=== PATIENT | female | born 1960 | race Caucasian/White ===

== ENCOUNTER 2025-02-28 11:47 | Day surgery (SDC) | payer OTHER, SELFPAY ==
[2025-02-21 12:36] VITALS: BMI 38.0
[2025-02-28] VITALS (11 sets, daily range): BP systolic 107–139; BP diastolic 52–89; PULSE 71–108; RESP 14–25; TEMP 36.1–36.7; O2SAT 95–99; BMI 38.9
--- NOTE | 2025-02-28 | DI.RAD.S_ITS ---
PROCEDURE: XR PELVIS 1-2V INDICATIONS: LEFT POSTERIOR HIP TECHNIQUE: 1 view of the lower pelvis acquired. COMPARISON: None. FINDINGS: Bones: Patient is status post left total hip arthroplasty, with hardware components in expected positions. The hip joint appears congruent. The visualized bony structures appear intact. Soft tissues: Overlying postoperative changes are noted. No suspicious soft tissue densities. IMPRESSION: Expected post-operative appearance of a hip arthroplasty. Dictated by: Vasu Ernst M.D. on 02/28/2025 at 18:00 Approved by: Vasu Ernst M.D. on 02/28/2025 at 18:00
--- NOTE | 2025-02-28 06:55 | DI.RAD.S_ITS ---
PROCEDURE: XR HIP W PEL IF DONE LT 2V INDICATIONS: SOFÍA TECHNIQUE: AP pelvis and lateral view of the hip acquired. COMPARISON: [facility], CR, XR PELVIS 1-2V, 02/28/2025, 16:43. [facility], CR, XR PELVIS WITH LATERAL HIP LEFT, 08/01/2024, 15:46. [facility], CR, XR PELVIS WITH LATERAL HIP LEFT, 11/26/2023, 14:19. FINDINGS: Bones: Patient is status post left hip arthroplasty, with hardware components in expected positions. The hip joint appears congruent. The visualized bony structures appear intact. Soft tissues: Overlying postoperative changes are noted. No suspicious soft tissue densities. IMPRESSION: Expected post-operative appearance of a hip arthroplasty. Dictated by: Brooke Kirk M.D. on 02/28/2025 at 18:27 Approved by: Brooke Kirk M.D. on 02/28/2025 at 18:27
[2025-02-28] MEDS: ACETAMINOPHEN 325 MG TABLET 975 MG PO (13:00)
--- NOTE | 2025-02-28 14:31 | P.OP_ITS ---
Operative Date/Time/Diagnoses Date of procedure: 02/28/25 Time of procedure: 15:00 Pre-op diagnosis: Severe left hip osteoarthritis Post-op diagnosis: same Procedure & Clinicians Procedure: Left total hip arthroplasty posterior approach Same procedure(s) as scheduled: Yes Indications: The patient has had progressively worsening left hip pain with radiographic changes consistent with arthritis. Non-operative management has failed and the patient has requested total hip replacement. The risks, benefits and alternatives to surgery were discussed with the patient prior to proceeding. Risks discussed included, but were not limited to, failure to relieve pain, leg length discrepancy, dislocation, stiffness, infection, nerve damage, deep venous thrombosis, pulmonary embolism, stroke, coma, heart attack, permanent paralysis and , as well as the potential need for eventual revision of the prosthetic. Surgeon: Deidra Babb Iron Setter: Rolando Huitron Anesthesia Type: Spinal Operative Notes Findings: Severe left hip OA, adequate stability, adequate bone Closure Type: primary Specimen(s): none sent Prosthetic devices, grafts, tissues, transplants, or devices: Babb and nephew R3 size 48, neutral poly liner, two 6.5 mm screws, polar stem size 3 standard offset, 32+ 0 head Applied: none Estimated Blood Loss (mL): 250 Blood products transfused: none Procedure in detail: The patient was seen in the pre-operative area, where the patient identified the left hip as the operative site and this was marked with my initials. The patient received pre-operative antibiotics and was taken to the operating room and placed on the operative table in the right lateral decubitus position after satisfactory anesthesia. A television picture tube rebuilder out was performed. The left leg was prepared from the ankle to the iliac crest with ChloroPrep in the usual fashion and draped through sterile drapes. A PA was used through the procedure and was essential for intraoperative retraction and safe implantation of the components. The hip was approached through an approximately 24 cm incision centered over the greater trochanter and curving gently posteriorly as it went proximally. This was carried sharply to the fascia sloane, which was divided and retracted with a self retaining retractor. The trochanteric bursa was excised with care being taken to avoid the sciatic nerve, which was identified and protected throughout the case. The short external rotators were incised and the capsulomuscular flap was raised and tagged for later repair. The hip was dislocated, and a femoral neck osteotomy performed approximately 15 mm above the lesser trochanter. Retractors were placed around the femur. The canal was opened with a box cutting osteotome, followed by a T handled reamer and a lateralizing reamer. The chili pepper broach was then used, followed by sequential broaching until there was good stability of the broach in the femur. Retractors were placed to expose the acetabulum. The labrum and central soft tissues were removed. Reaming was performed initially going up in 2 mm increments, then 1 mm increments until good bite was obtained with an odd sized reamer. The cup 1 mm larger than the last reamer was then inserted using the appropriate anteversion guides. It was further stabilized with 2 screws. A trial neutral liner was placed. The broach was placed in the canal. A trial head and neck were then placed and the hip relocated and checked for leg length and stability. An intraoperative film confirmed the component position and no evidence of fracture. The patient w as stable in the position of sleep, of squatting, and could be put through a range of motion with 45 degrees internal rotation without dislocation. At 90 degrees flexion, internal rotation to 70? was possible before dislocation. This was felt to be satisfactory and the appropriate components were opened, and the trials were removed. The acetabular liner was impacted into position. The final stem was then impacted into the prepared femoral canal. A brief Betadine soak was performed while trialing with head options. The hip was meticulously irrigated with normal saline. Finally the femoral head was impacted onto the stem. The acetabulum was cleared of all material and the hip relocated one final time. The capsulomuscular flap was then repaired to the greater trochanter though an awl hole using the tag sutures. The short external rotators were repaired with a nonabsorbable suture. The fascia sloane was closed with Vicryl. The subcutaneous layer was closed with barbed sutures and skin nathan. A lissy Dressing was applied and the patient was taken to recovery having tolerated the procedure well. Complications: none Post-operative Condition: stable Disposition: Acute Care Plan for aftercare: The patient will be maintained on a standard total hip replacement protocol with weight bearing as tolerated and posterior hip precautions. The patient will receive Coumadin and sequential compression devices for DVT prophylaxis. The patient will be discharged home when safe for the home environment.
--- NOTE | 2025-02-28 14:31 | PM.PREOP ---
Pre-operative Note Interval Note History & Physical reviewed/Exam performed by Physician: Yes Changes to H&P: No
[2025-02-28] MEDS: VANCOMYCIN 1,000 MG in SODIUM CHLORIDE 0.9% 250 ML 250 MG IV (15:00)
[2025-02-28] MEDS: CEFAZOLIN 2 GM/100 ML PREMIX 100 ML IV ×2 (15:30→22:30)
--- NOTE | 2025-02-28 16:05 | SUR.OPER ---
Lateral on padded OR bed. Gel axillary roll. Arms secured on padded armboard with pillow supporting top arm. Padded hip positioner braces x4 - anterior and posterior chest and pelvis. Additional gel pad used anterior pelvis. Gel pad under bottom leg from knee to foot and secured with tape over sheet.
[2025-02-28] MEDS: BUPIVACAINE LIPOSOME 266 MG/20 ML VIAL INJ (16:26)
[2025-02-28] MEDS: TRANEXAMIC ACID 1,000 MG VIAL 1000 MG INJ (16:29)
[2025-02-28] MEDS: BUPIVACAINE 0.25% W/ EPI 30 ML VIAL 60 ML INJ (16:32)
[2025-02-28] MEDS: EPINEPHrine 1 MG/ML IRR (16:35)
[2025-02-28] MEDS: OXYCODONE/ACETAMINOPHEN 5/325 TABLET 1 TAB PO (18:25)
[2025-02-28] MEDS: LACTATED RINGERS 1,000 ML 100 ML IV (19:23)
[2025-02-28] MEDS: ACETAMINOPHEN 325 MG TABLET 650 MG PO (19:24)
[2025-02-28 19:33] LABS: INR 1.0 (0.9-1.3); Prothrombin Time 11.2 SECONDS (9.4-12.5)
[2025-02-28] MEDS: OXYCODONE IR 5 MG TABLET PO (21:39)
[2025-02-28] MEDS: TRAZODONE 50 MG TABLET 200 MG PO (21:40)
[2025-02-28] MEDS: WARFARIN 2.5 MG TABLET 7.5 MG PO (21:40)
[2025-02-28] MEDS: NYSTATIN POWDER 15GM 1 APPLIC TOP (21:41)
[2025-02-28] MEDS: INSULIN NPH 100 UNIT/ML 10ML VIAL 10 UNIT SUBCUT (21:41)
[2025-02-28] MEDS: DOCUSATE 100 MG CAPSULE PO (21:44)
[2025-03-01] MEDS: ACETAMINOPHEN 325 MG TABLET 650 MG PO ×2 (01:48→06:44)
[2025-03-01 02:00] VITALS: BP 154/76; PULSE 83; RESP 18; TEMP 36.1; O2SAT 99
[2025-03-01 04:50] LABS: Hematocrit 33.8 % (36-46); Hemoglobin 11.7 g/dL (12.0-16.0)
[2025-03-01 04:59] LABS: Blood Urea Nitrogen 16 mg/dL (7-17); Calcium 8.5 mg/dL (8.4-10.2); Carbon Dioxide 29 mmol/L (22-32); Chloride 105 mmol/L (98-107); Estimated Glomerular Filt Rate > 60 mL/min (>60); Glucose 182 mg/dL (70-99); HEMOLYSIS < 15 (0-50); Potassium 3.6 mmol/L (3.4-5.1); Sodium 139 mmol/L (137-145)
[2025-03-01 05:25] LABS: Hemoglobin A1C% w Est Avg Glu 6.3 % (4.0-6.0)
[2025-03-01 06:00] VITALS: BP 112/63; PULSE 90; RESP 16; TEMP 36.5; O2SAT 97
[2025-03-01] MEDS: CEFAZOLIN 2 GM/100 ML PREMIX 100 ML IV (06:44)
[2025-03-01 07:34] VITALS: BP 122/71; PULSE 89; RESP 14; TEMP 37.1; O2SAT 97
[2025-03-01] MEDS: DOCUSATE 100 MG CAPSULE PO (08:56)
[2025-03-01] MEDS: METFORMIN HCL 500 MG TABLET 1000 MG PO (08:56)
[2025-03-01] MEDS: INSULIN NPH 100 UNIT/ML 10ML VIAL 10 UNIT SUBCUT (09:00)
[2025-03-01] MEDS: OXYCODONE IR 5 MG TABLET PO (09:01)
--- NOTE | 2025-03-01 10:21 | CM.DANOTE ---
Initial DCP Assessment Note Pt is a 64 yo female, resident of [place], now POD#1 from left SOFÍA by Dr Babb PCP: Maico Webster Payer: Jeremi JUARES Reviewed chart, pt discussed in multidisciplinary rounds this morning. Therapy pending this morning. Pt has planned for home, DC order from Ortho has already been initiated this morning. Patient lives independently with family. No barriers identified at this time to patient's safe discharge home w/family to assist; close outpatient f/u recommended. Social work team will plan to follow clinical course closely in case any DC needs or concerns arise. MARTHA Mcpherson Discharge Planning/Care Management CM Discharge Assessment Start: 02/28/25 12:05 Freq: Status: Active Protocol: Document 03/01/25 10:17 MALGORZATA (Rec: 03/01/25 10:21 MALGORZATA [id number]) Discharge Planning Assessment Assigned Discharge MARTHA Gutierrez Healthcare Sales Representative DPOA/Assigned Kevin Ingram, spouse P [phone] Designee Name Advance Directives? No History Provided By Patient Prior Living House Arrangements Household Members spouse,children Independent with ADL Yes 's Is patient alert and Yes oriented? Comment Independent Comment Home Barriers to No Discharge Discharge Plan Home Transportation Spouse Arrangement
--- NOTE | 2025-03-01 10:50 | PT.IIE ---
Current Diagnoses Unilateral primary osteoarthritis, left hip (02/28/25) Surgery Performed Operation Date: 02/28/25 13:45 Actual Procedures p Total Hip Arthroplasty(Left) - Deidra Babb MD Surgical History (Last Updated 02/21/25 @ 13:25 by Brenda Stein, RN) History of bilateral cataract extraction History of bilateral tubal ligation History of total right hip replacement (~2008) Hx of cholecystectomy (1991) Medical History (Last Updated 02/21/25 @ 13:35 by Brenda Stein RN) Diabetes History of COVID-19 (02/04/25) History of left heart catheterization (03/18/24) History of uveitis HLD (hyperlipidemia) Hypothyroid REBECA on CPAP Osteoarthritis Pulmonary embolism (~2008) PVC (premature ventricular contraction) Physical Therapy Inpatient Evaluation/Re-Eval M1 PT/OT-IP Prior Functional Status Start: 03/01/25 12:33 Freq: NEEDED Status: Active Protocol: Document 03/01/25 10:50 AB (Rec: 03/01/25 12:46 AB [id number]) Medical Review Prior Functional Status Medical History Yes Reviewed Communication able to make needs known Mobility and Gait pt stated that she has been using one crutch for ambulation since April 2024 due to L hip pain; was not using any AD prior to apr 2024 Activities of Daily Able to do with increased pain and time. Living and IADL's Social History Household Members spouse,children Living Arrangements House Number of Floors ( One Floor Floors) Number of Stairs To 4 steps with bilateral rails. Enter/Railing? Home Environment High Toilet,Walk in Shower Home Equipment Front Wheel Walker,Crutches,Raised Toilet Seat w/ Armrests,Shower Seat without Backrest,Hand Held Shower, Long Handled Shoe Horn,Freezer Assistant,Sock Aid M2 PT-IP Current Condition Start: 03/01/25 12:33 Freq: NEEDED Status: Active Protocol: Document 03/01/25 10:50 AB (Rec: 03/01/25 12:46 AB [id number]) Physical Therapy Current Condition Current Condition Evaluation Date 03/01/25 Treatment Diagnosis s/p L SOFÍA posterior; difficulty in walking Onset Date 02/28/25 M3 PT-IP Subjective Start: 03/01/25 12:33 Freq: NEEDED Status: Active Protocol: Document 03/01/25 10:50 AB (Rec: 03/01/25 12:46 AB [id number]) Therapy Pain Assessment Pain When Pain Assessed At Rest Pain Present Pain Present Pain Reported Location left hip Intensity 4 Scale Used Numeric (0 - 10) Pain Behaviors Guarding Pain Management Distraction,Modification of Treatment,Re-positioning, Techniques Timing of Activity with Medications M4 PT-IP Mobility and Gait Start: 03/01/25 12:33 Freq: NEEDED Status: Active Protocol: Document 03/01/25 10:50 AB (Rec: 03/01/25 12:46 AB [id number]) PT-Bed Mobility Assessment Supine to Sit Supine to Sit Contact Guard Assistance Sit to Supine Sit to Supine Contact Guard Assistance PT-Transfer Assessment Sit to and From Stand Sit to and from Contact Guard Assistance,1 Person Assistance,Use of Stand Upper Extremities Equipment Transfer Assistive Gait Belt,Front Wheeled Walker Device Orthotic/Prosthetic No Devices or Brace: Transfers Transfer Destination Bed,Chair Transfer Technique ambulated Transfer Ability Level of Assist Contact Guard Assistance,1 Person Assistance,Use of Upper Extremities Comments Mobility Comments pt sitting on the chair and agreeable to do PT. pt just finished with OT. obtained PLOF and home set up. reviewed hip precautions with pt and pt able to recall 3/3. sit to stand from the chair CGA but required cues for hip precautions. pt ambulated to EOB ~ 12 ft using FWW CGA and cues. pt completed sit<>supine CGA and cues on techniques. completed sit to stand from EOB x 4 reps CGA and max cues for techniques. pt ambulated in the hallway ~ 40 ft using FWW CGA. stair climbing training and pt completed using B rails CGA. assisted pt back to her room . able to completed sit < >stand from w/c CGA no cues needed. pt ambulated to the chair using FWW CGA. positioned pt on the chair. call light and table placed within reach . informed caregiver training to pt and pt declined and stated that she can tell spouse on what to do to assist her. Gait Assessment Gait Gait Assistance Standby Assistance,Contact Guard Assist Required: Distance (Feet) 40 Able to Maintain Yes Weight Bearing Status During Gait Assistive Devices Assistive Device Gait Belt,Front Wheeled Walker Orthotic/Prosthetic No Devices or Brace: Gait Deviations General Gait Pattern Antalgic,Decreased Stride Length,Decreased Feet Clearance Factors Limiting Gait Function Factors Limiting Decreased Activity Tolerance,Decreased Strength, Gait Function Difficulty Following Directions,Limited Range of Motion ,Pain,Poor Balance,Poor Safety Awareness Stair Climbing Assessment Evaluation Level of Assist On Contact Guard Assistance Stairs Devices Stair Climbing Left Railing,Right Railing Assistive Devices Technique/Endurance Stair Climbing Ascend and Descend Direction Stair Climbing Step to Step Technique Number of Steps 3 Climbed Query Text: Stair Climbing Set # 1 Repetitions (reps) PT-Balance Assessment Sitting Balance and Reactions Static Sitting Normal Balance Ability Dynamic Sitting Good Balance Ability Standing Balance and Reactions Static Standing Fair Balance Ability Dynamic Standing Fair Balance Ability Device Used FWW M5 PT-IP Objective Assessments Start: 03/01/25 12:33 Freq: NEEDED Status: Active Protocol: Document 03/01/25 10:50 AB (Rec: 03/01/25 12:46 AB [id number]) Orientation Orientation/Cognition Level of Alertness Alert Orientation Name,Place,Situation Language Function No Deficits Noted Ability Safety Awareness Decreased Safety Awareness Memory Description Short Term Impaired Strength Lower Extremity Strength Assessment Left Impaired Hip 3-/5 Knee 4-/5 Coordination Assessment Gross Coordination Gross Coordination WNL Sensation Assessment Sensation Gross Sensation Left LE Impaired Comments Sensation Comments slight numbness per pt on L upper thigh area Muscle Tone Muscle Tone WNL Yes M6 PT-IP Treatment Start: 03/01/25 12:33 Freq: NEEDED Status: Active Protocol: Document 03/01/25 10:50 AB (Rec: 03/01/25 12:46 AB [id number]) Physical Therapy Treatment Education Education Provided Precautions,Weight Bearing Status,Safety M7 PT-IP Assessment and Plan Start: 03/01/25 12:33 Freq: NEEDED Status: Active Protocol: Document 03/01/25 10:50 AB (Rec: 03/01/25 12:46 AB [id number]) PT Summary Assessment and Plan Potential Rehabilitation Good Potential Status of Condition Stable at Evaluation Summary Impairments Pain,ROM,Strength,Balance,Coordination,Sensation,Tone, Cognition,Bed Mobility,Transfers,Gait,Activity Tolerance Assessment Summary pt is a 64 y/o F s/p L SOFÍA posterior approach POD 1. pt has L posterior hip precautions and is WBAT. pt requiring CGA with mobilities using FWW and plans to go home with her family to assist her. pt has outpt PT set up. Goals Bed Mobility Goal Independent Transfer Goal Independent,Front Wheeled Walker Gait Goal Independent,Front Wheel Walker Gait Distance 200 Other Goals up/down 4 steps B rails SBA Days to Meet Goals 5 Frequency of Treatment Frequency Of Twice a Day Treatment Treatment Plan Physical Therapy Bed Mobility Training,Transfer Training,Gait Training, Treatment Plan Therapeutic Exercise,Balance Retraining,Post Op Education,Discharge Planning,Hot or Cold Pack, Neuromuscular Re-ed,Coordination Retraining,Manual Therapy Precautions Posterior Hip No Hip Flexion > 90 degrees,No Hip Internal Rotation,No Precautions Hip Adduction Weight Bearing Status Weight Bearing Weight Bear as Tolerated Status Allowed Weight LLE WBAT Bearing Amount ( enter % or #) (%) Recommendations To Nursing Amount of Assist 1 Person Assist Needed Discharge Recommendations PT Discharge Home with Assistance,Outpatient PT Recommendations Transportation Needs Private Vehicle at Discharge - PT assist 1
--- NOTE | 2025-03-01 10:50 | OT.IP.EVAL ---
Current Diagnoses Unilateral primary osteoarthritis, left hip (02/28/25) Surgery Performed Operation Date: 02/28/25 13:45 Actual Procedures p Total Hip Arthroplasty(Left) - Deidra Babb MD Past Medical History (Last Updated 02/21/25 @ 13:35 by Brenda Stein, RN) Diabetes History of COVID-19 (02/04/25) History of left heart catheterization (03/18/24) History of uveitis HLD (hyperlipidemia) Hypothyroid REBECA on CPAP Osteoarthritis Pulmonary embolism (~2008) PVC (premature ventricular contraction) Surgical History (Last Updated 02/21/25 @ 13:25 by Brenda Stein, RN) History of bilateral cataract extraction History of bilateral tubal ligation History of total right hip replacement (~2008) Hx of cholecystectomy (1991) Occupational Therapy Inpatient Evaluation/Re-Eval M1 PT/OT-IP Prior Functional Status Start: 03/01/25 12:02 Freq: NEEDED Status: Active Protocol: Document 03/01/25 12:02 [facility] (Rec: 03/01/25 12:20 [facility] Desktop) Medical Review Prior Functional Status Communication I Mobility and Gait Use of a crutch to assist to get around. Activities of Daily Able to do with increased pain and time. Living and IADL's Social History Household Members spouse,children Living Arrangements House Number of Floors ( One Floor Floors) Number of Stairs To 4 steps with bilateral narrow rails. Enter/Railing? Home Environment High Toilet,Walk in Shower Home Equipment Front Wheel Walker,Crutches,Raised Toilet Seat w/ Armrests,Shower Seat without Backrest,Hand Held Shower, Long Handled Shoe Horn,Sfdc Developer,Sock Aid M2 OT-IP Current Condition Start: 03/01/25 12:02 Freq: Status: Active Protocol: Document 03/01/25 12:02 [facility] (Rec: 03/01/25 12:20 [facility] Desktop) Occupational Therapy Current Condition Current Condition Evaluation Date 03/01/25 Treatment Diagnosis S/P L SOFÍA posterior Diagnosis Onset Date 02/28/25 Post Operative Precautions Posterior Hip No Hip Flexion > 90 degrees,No Hip Internal Rotation,No Precautions Hip Adduction M3 OT- IP Subjective and Pain Start: 03/01/25 12:02 Freq: Status: Active Protocol: Document 03/01/25 12:02 [facility] (Rec: 03/01/25 12:20 [facility] Desktop) OT- Subjective Occupational Therapy Visit Type Type Initial Evaluation Visit Start Time 10:10 Visit Stop Time 10:50 Occupational Therapy Visit Comments Patient Comments Pt agreed to get dressing. Patient/Caregiver TO go home. Goals OT Pain Assessment Pain When Pain Assessed During Mobility Pain Present Pain Present Pain Reported Location left hip Intensity 4 Scale Used Numeric (0 - 10) M4 OT- IP ADL's Start: 03/01/25 12:02 Freq: Status: Active Protocol: Document 03/01/25 12:02 [facility] (Rec: 03/01/25 12:20 [facility] Desktop) OT HGK-Ozkz-Woafref General Evaluation Self-Feeding Ability Independent OT ADL-Grooming General Evaluation Areas Needing Retrieving/Set-up of Grooming Items Assistance Comments OT Grooming Comments Pt able to do while standing at the sink with FWW. OT ADL-Oral Care General Eval Oral Care Ability Independent OT ADL-Dressing General Eval Upper Body Dressing Independent Ability Lower Body Dressing Contact Guard Assistance Ability Comments OT Dressing Comments Educated and pt able to practice use of LB dressing equipment. Pt educated to dress the LLE first and take it out. Pt also encourage to use the immunology teacher for her RLE clothing so to prevent from bending over too far. OT ADL-Toileting Comments OT Toileting At this time suggested to stand and wipe, use of wet- Comments ones, and/or get assist. OT ADL-Bathing Comments OT Bathing Comments Talked about care of the dressing for showering needs. M5 OT- IP IADL's Start: 03/01/25 12:02 Freq: Status: Active Protocol: Document 03/01/25 12:02 [facility] (Rec: 03/01/25 12:20 [facility] Desktop) OT-Instrumental Activities of Daily Living Home Safety Awareness Awareness of Need Good Awareness for Assistance at Home Ability to Problem Able to Problem Solve Solve Emergency Situations Medication Management Medication No Deficits Identified Management Money Management Money Management No Deficits Identified Meal Preparation Meal Preparation Caregiver Provides Assist Back Panel Padder Back Panel Padder Caregiver Provides Assist M6 OT- IP Functional Cognition Start: 03/01/25 12:02 Freq: Status: Active Protocol: Document 03/01/25 12:02 [facility] (Rec: 03/01/25 12:20 [facility] Desktop) Cognitive Factors Limiting Selfcare Function Cognitive Ability Level of Alertness Alert Patient Orientation Name,Age,Birthday,Month,Date,Year,Day of Week,Place, Situation Attention Span Capable of Focused Attention,Capable of Sustained Ability Attention Ability to Follow Able to Follow One Step Commands Commands Memory Description No Deficits Noted Safety Awareness Decreased Recall of Precautions,Decreased Ability to Apply Precautions Cognitive Comments Cognitive Assessment Pt able to recall 2/3 hip precautions. Pt needing cues Comments to pickle sorter her feet when turning with the FWW. OT- Vision and Hearing OT- Hearing Assessment OT- Hearing WFL Assessment OT- Vision Assessment Vision Assessment Pt has left eye blindness. Comments M7 OT- IP Mobility and Balance Start: 03/01/25 12:02 Freq: Status: Active Protocol: Document 03/01/25 12:02 [facility] (Rec: 03/01/25 12:20 [facility] Desktop) OT- Bed Mobility Assessment Supine to Sit Supine to Sit Assist Contact Guard Assistance OT-Transfer Assessment Sit to and From Stand Sit to and from Contact Guard Assistance Stand Transfers Transfer Ability Contact Guard Assistance Technique Transfer Destination Bed,Chair Transfer Technique Stand Step Pivot Devices Transfer Assistive Gait Belt,Front Wheeled Walker Devices Comments Mobility Comments Pt having to assist her LLE to the edge of the bed. CGA to stand to the FWW and walk the room with CGA for balance. Went over sleeping position with pt. OT- Balance Assessment Sitting Balance and Reactions Static Sitting Normal Balance Ability Dynamic Sitting Good Balance Ability Standing Balance and Reactions Static Standing Good Balance Ability Dynamic Standing Fair Balance Ability M8 OT- IP Objective Assessments Start: 03/01/25 12:02 Freq: Status: Active Protocol: Document 03/01/25 12:02 [facility] (Rec: 03/01/25 12:20 [facility] Desktop) OT Strength Comments Strength Comments WFL for needs. M9 OT- IP Assessment and Plan Start: 03/01/25 12:02 Freq: Status: Active Protocol: Document 03/01/25 12:02 [facility] (Rec: 03/01/25 12:20 [facility] Desktop) OT Summary Assessment and Plan Potential Rehabilitation Excellent Potential Analytic Complexity Low at Evaluation Summary OT Impairments Pain,Balance,Functional Mobility,Dressing,Toileting, Bathing,Toilet Transfers,Shower Transfers Progress Towards Progressing Toward Goals Goals Assessment Summary Pt low complexity and main barriers are pain, steps, and needing reminders to incorporate her hip precautions for ADL and mobility needs. Pt doing well and able to practice use of LB dressing equipment while getting dressed and able to stand with the FWW at the sink for needs. Pt to go home with her to assist and attend outpt PT . Also stressed importance of keeping her pets from getting underfoot to prevent risk of falling. Goals Dressing Goal Independent,Long Handled Shoe Horn,Sfdc Developer,Sock Aid Toileting Goal Independent Bathing Goal Standby Assistance Toilet Transfer Goal Independent Shower Transfer Goal Standby Assistance Days to Meet Goals 3 Frequency of Treatment Frequency Of Once a Day Treatment Treatment Plan OT Treatment Plan ADL Training,Functional Mobility,Patient/Family Education,Discharge Planning Discharge Recommendations OT Discharge Home with Assistance,Outpatient PT Recommendations Transportation Needs Private Vehicle at Discharge
[2025-03-01] MEDS: OXYCODONE IR 10 MG TABLET PO (11:49)
--- NOTE | 2025-03-01 11:52 | PC.NURSE ---
IV out. Discussed pain management, infection, showering, follow up, and activity. No further questions. Patient wheeled out to private vehicle via wheelchair by PCT.
--- NOTE | 2025-03-01 20:44 | PM.DS.1 ---
History of Present Illness History of Present Illness Date Patient Seen: 03/01/25 Time Patient Seen: 07:45 Chief complaint: INPT left SOFÍA Narrative: Patient underwent a left total hip arthroplasty. She did have significant obesity. She had a posterior approach. She tolerated the procedure well. She did well with physical therapy and was felt to be safe for discharge. Discharge Providers Provider Discharge Date: 03/01/25 Primary care physician: Maico Webster MD Consults: 02/21/25 13:50 Consult to Anesthesiology Routine Comment: Consulting Provider: Anesthesiologist Reason for consultation: Surgeon requested re: Multiple medical 02/28/25 06:55 Consult to Anesthesiology Routine Comment: Consulting Provider: Anesthesiologist Reason for consultation: Regional block for post operative pain control Has provider been notified: No 02/28/25 18:52 Consult to Discharge Planning Routine Comment: Consult to Occupational Therapy Evaluate & Treat Comment: Physician Instructions: Evaluate and treat Consult to Physical Therapy Evaluate & Treat Comment: Physician Instructions: post op SOFÍA protocol Discharge provider: Deidra Babb MD Summary Hospital Course Discharge Diagnosis: Left total hip arthroplasty posterior approach, morbid obesity, sleep apnea Hospital Course: She was taken the operating room she underwent a left total hip arthroplasty from posterior approach. She tolerated the procedure well. She was mobilized with physical therapy. She did have a brief episode of hypoxia at the end of her procedure but did well postoperatively. Status at Discharge Cognitive/behavioral status at discharge: oriented Functional status at discharge: uses cane/walker Overall status at discharge: patient is progressing back to baseline Time Spent with Patient Time spent: Less than 30 minutes Exam Vital Signs (past 8 hours): Oxygen Delivery Method Room Air Oxygen Flow Rate 0 Narrative Exam Narrative: Resting comfortably in bed, alert oriented, dressing intact, lissy dressing is working, calves are soft distally. Minimal pain with gentle range of motion in the hip Objective Labs 03/01/25 04:00 03/01/25 04:00 Labs: Laboratory Results - last 24 hr 03/01/25 04:00 Hgb 11.7 L Hct 33.8 L Sodium 139 Potassium 3.6 Chloride 105 Carbon Dioxide 29 BUN 16 Creatinine 0.65 Estimated GFR > 60 BUN/Creatinine Ratio 24.6 H Glucose 182 H Hemoglobin A1c 6.3 H Calcium 8.5 PFSH Medical History History of COVID-19 (02/04/25) Osteoarthritis REBECA on CPAP History of uveitis History of left heart catheterization (03/18/24) PVC (premature ventricular contraction) Hypothyroid HLD (hyperlipidemia) Diabetes Pulmonary embolism (~2008) Surgical History History of bilateral tubal ligation Hx of cholecystectomy (1991) History of bilateral cataract extraction History of total right hip replacement (~2008) Social History household members: spouse and children Smoking Status: Never smoker alcohol intake: current Discharge Assessment & Plan Assessment and Plan Assessment: Doing well postoperatively. She was seen with Physical therapy and cleared we reviewed her posterior hip precautions and discussed in detail the importance of fall precautions. Plan of Treatment: Discharge to home. Discharge Plan Discharge Plan Patient Disposition: Home Discharge orders & Medications Discharge Orders: Discharge (Order); Ordered 03/01/25 Ordered By: Deidra Babb Prescriptions: New polyethylene glycol 3350 17 gram Powder In Packet 17 g PO DAILY PRN (Reason: Constipation) Qty: 14 0RF oxycodone 5 mg Tablet 5 mg PO Q3H PRN (Reason: Pain, Moderate (4-6)) Qty: 30 0RF Continued warfarin 5 mg tablet 5 mg PO DAILY Patient Comments: Pt takes 5mg M & F, 7.5mg rest prednisone 5 mg tablet 15 mg PO DAILY prednisone 1 mg tablet 3 mg PO DAILY difluprednate 0.05 % drops 1 drp EYE-BOTH QMWF metformin 500 mg tablet 1,000 mg PO DAILY trazodone 100 mg tablet 200 mg PO BEDTIME Humulin 70/30 U-100 KwikPen 100 unit/mL (70-30) insulin pen 12 unit SUBCUT BID diphenhydramine-acetaminophen [Acetaminophen PM] 25-500 mg tablet 1 tab PO BEDTIME PRN (Reason: sleep) Follow up/Referrals: Maico Webster MD [Primary Care Provider, Family Practice] Visit Report/Discharge Packet Stand Alone Forms: Patient Portal/API, Stroke Signs & Symptoms Print Language: Turkish Discharge Data Primary Care Provider: Maico Webster Attending Provider: Deidra Babb
== END 2025-03-01 11:54 | disposition home or self-care (01) ==
LOC: AC 03-01 11:45 → OR 03-01 12:44
PROVIDERS: PCP Family Medicine; Referring Provider Orthopaedic Surgery; Visit Provider Orthopaedic Surgery
PROC: 0SRB0JZ Replacement of Left Hip Joint with Synthetic Substitute, Open Approach (ICD-10-PCS; CPT 27130; principal; 2025-02-28 13:45)
DX: M16.12 Unilateral primary osteoarthritis, left hip (principal); Z86.711 Personal history of pulmonary embolism; Z79.01 Long term (current) use of anticoagulants; Z96.641 Presence of right artificial hip joint
CPT/HCPCS: 27130; 36415; 72170; 73502; 80048; 82962; 83036; 85014; 85018; 85610; 97161; 97165; 97530; 97535; C1776; J0165; J0666; J0690; J2250; J2704; J3010